=== PATIENT | female | born 1955 | race Caucasian/White ===

== ENCOUNTER 2019-10-24 16:33 | Emergency (ER) | payer BC, SELFPAY ==
[2019-10-24 16:42] VITALS: BP 167/84; PULSE 72; RESP 18; TEMP 36.8; O2SAT 99; BMI 25.0
--- NOTE | 2019-10-24 17:01 | ECG_ITS ---
Measurements Intervals [place] Rate: 59 P: 48 HI: 161 QRS: -5 QRSD: 85 T: 50 QT: 442 QTc: 439 SINUS BRADYCARDIA LOW QRS VOLTAGE IN PRECORDIAL LEADS [QRS DEFLECTION < 1.0 mV IN CHEST LEADS] POSSIBLE INFERIOR MYOCARDIAL INFARCTION , PROBABLY OLD [30 ms Q WAVE IN II/aVF] No previous ECG available for comparison Electronically Signed On 10-24-2019 21:06:40 GLASSINE MACHINE TENDER by Jenn Up M.D. [email or web address]
--- NOTE | 2019-10-24 17:01 | XR_ITS ---
WS: [id number] Portable AP upright chest, 10/24/2019 Clinical Data: cough/congestion Comparison: None. Findings: No nodules, masses or effusions are seen. The heart is normal. The pulmonary vascularity is not increased. No pneumonia or pneumothorax is seen. XR/XR chest 1V portable [id number] Impression: Negative chest.
[2019-10-24 17:32] LABS: Basophils % 0.4 %; Eosinophils # 0.6 10^3/uL (0.0-0.8); Eosinophils % 7.5 %; Hematocrit 45.1 % (37.0-47.0); Hemoglobin 14.3 g/dL (11.5-15.3); Lymphocytes % 12.3 %; Mean Corpuscular HGB Conc 31.7 g/dL (30.0-36.0); Mean Corpuscular Hemoglobin 29.2 pg (28.0-34.0); Mean Platelet Volume 11.2 fL (7.4-10.4); Monocytes # 0.4 10^3/uL (0.2-0.9); Monocytes % 4.8 %; Neutrophils # 5.9 10^3/uL (1.8-7.7); Neutrophils % 74.7 %; Nucleated Red Blood Cells % 0 %; Platelet Count 213 10^3/cmm (130-400); Red Cell Distribution Width 12.1 % (12.1-15.1); White Blood Count 7.9 10^3/uL (4.0-10.0)
--- NOTE | 2019-10-24 17:38 | W.ED.ABDPA2 ---
HPI - Abdominal Pain General: Chief Complaint: Abdominal Pain Stated Complaint: abd pain Time Seen by Provider: 10/24/19 17:38 Source: patient Mode of arrival: ambulatory Limitations: no limitations History of Present Illness: HPI narrative: Patient is a nice 63-year-old female who presents to ED today with complaints of epigastric pain that initially began a few days ago. Patient states her pain seems to be intermittent and seems to be worsened with eating. Patient has no history of GERD, acid reflux, gastric ulcers, pancreatitis, or gallbladder disease. She reports no previous episodes. She reports nausea but no vomiting. Bowel movements have been normal. She has not been running fever/chills. She denies chest pain, shortness of breath, difficulty breathing. MD elicited complaint: abdominal pain Pertinent past history: none Pain Consistency: intermittent Location: Epigastric Radiation: none Migration to: other (back) Exacerbating factors: eating Relieving factors: nothing Associated Symptoms: Reports no associated symptoms and nausea; Denies change in stool character, chills, diarrhea, dysuria, fever(s), hematochezia, melena, syncope and vomiting Review of Systems Const: Denies: fever, chills, body aches, fatigue or malaise ENMT: Denies: throat pain or painful swallowing Card: Denies: chest pain, palpitations, irregular heart rhythm, edema, swelling of feet/ankles, lightheadedness, syncope, pre-syncope, shortness of breath on exertion or shortness of breath when lying down Resp: Denies: shortness of breath, productive cough, pain on inspiration, coughing up blood or chest congestion GI: Reports: abdominal pain and nausea; Denies: vomiting, diarrhea, change in stool character, blood in stool, black tarry stool, white/light colored stool or fatty stool : Denies: flank pain, difficulty urinating, painful urination, urinary frequency or urinary urgency Skin/Breast: Denies: rash Neuro: Denies: headache PFSH ED PFSH: Social History Smoking and tobacco status: never smoked Physical Exam Const: COMMON NORMALS: no apparent distress, average body habitus, oriented x3, no limitations, healthy appearing, alert and well nourished Chest: COMMONS NORMALS: inspection of chest normal and palpation of chest normal Resp: COMMON NORMALS: normal respiratory effort and clear to auscultation bilaterally AUSCULTATION: clear to auscultation bilaterally Cardio: COMMON NORMALS: regular rate and regular rhythm RATE: regular rate RHYTHM: regular rhythm GI: COMMON NORMALS: normal to inspection, nondistended, normoactive bowel sounds, soft to palpation, no hepatosplenomegaly and no masses PALPATION: Yes soft, Yes tender (mild; epigastric ) and Yes no hepatosplenomegaly : COMMON NORMALS: Yes no CVA tenderness BLADDER/KIDNEY EXAM: Yes no CVA tenderness Back/Pelvis: COMMON NORMALS: no CVA tenderness, thoracic and lumbar spine normal to inspection and thoraco-lumbar ROM normal Neuro: COMMON NORMALS: oriented x3 SENSORIUM/ORIENTATION: Yes alert Skin: COMMON NORMALS: no rashes or lesions noted GENERAL SKIN EXAM: no rashes or lesions noted Course Vital Signs: Vital signs: Vital Signs Temperature 97.7 F 10/24/19 19:18 Pulse Rate 68 10/24/19 19:18 Respiratory Rate 18 10/24/19 19:18 Blood Pressure 156/88 10/24/19 19:18 Pulse Oximetry 98 10/24/19 19:18 MDM - Abdominal Pain MDM Narrative: Medical decision making narrative: Patient had relief after GI cocktail. Her labs here are non-concerning. She will be treated for a possible gastritis. Recommend she follow-up with PCP in 2 weeks for continued pain. Return to ED precautions given. Lab Data: Labs: Lab Results 10/24/19 10/24/19 10/24/19 Range/Units 17:20 17:20 17:20 WBC 7.9 (4.0-10.0) 10^3/ uL RBC 4.90 (4.1-5.3) 10^6/u L Hgb 14.3 (11.5-15.3) g/dL Hct 45.1 (37.0-47.0) % MCV 92.0 (81-99) fL MCH 29.2 (28.0-34.0) pg MCHC 31.7 (30.0-36.0) g/dL RDW 12.1 (12.1-15.1) % Plt Count 213 (130-400) 10^3/c mm MPV 11.2 H (7.4-10.4) fL Neut % (Auto) 74.7 % Lymph % (Auto) 12.3 % [place] % (Auto) 4.8 % Eos % (Auto) 7.5 % Baso % (Auto) 0.4 % Neut # (Auto) 5.9 (1.8-7.7) 10^3/u L Lymph # (Auto) 1.0 (0.8-4.8) 10^3/u L [place] # (Auto) 0.4 (0.2-0.9) 10^3/u L Eos # (Auto) 0.6 (0.0-0.8) 10^3/u L Baso # (Auto) 0.0 (0.0-0.1) 10^3/u L Nucleated RBC % (a uto) 0 % Nucleated RBCs # 0.0 /100WBC Sodium 141 (136-145) mmol/L Potassium 4.2 (3.5-5.1) mmol/L Chloride 103 (98-107) mmol/L Carbon Dioxide 24 (22-29) mmol/L Anion Gap 18.2 (5-19) BUN 11 (8-23) mg/dL Creatinine 0.6 (0.5-0.9) mg/dL GFR Calculation 101.6 (90-130) mL/min Glucose 120 H (65-115) mg/dL Calcium 10.5 (8.5-10.5) mg/dL Total Bilirubin 0.3 (0.15-1.2) mg/dL AST 24 (0-32) U/L ALT 23 (0-33) U/L Alkaline Phosphata se 97 (35-105) IU/L Troponin T Gen 5 n g/L 6 (0-10) ng/mL Total Protein 7.2 (6.6-8.7) g/dL Albumin 4.8 (3.5-5.2) g/dL Globulin 2.4 (1.3-4.6) g/dL Lipase 32 (13-60) U/L EKG Data ^: EKG 1: EKG interpretation date: 10/24/19 EKG interpretation time: 17:45 Interpretation: Sinus bradycardia Rate [address] elevation or depression noted Discharge Plan Discharge Patient Disposition: Home, Self-Care Clinical Impression: Gastritis Qualifiers: Gastritis type: superficial Chronicity: acute Gastritis bleeding: without bleeding Qualified Code(s): K29.00 - Acute gastritis without bleeding Condition: Stable Prescriptions: New ranitidine HCl 150 mg capsule 150 mg PO DAILY Qty: 14 RF: 0 omeprazole 20 mg capsule,delayed release(DR/EC) 20 mg PO DAILY 14 Days Qty: 14 RF: 0 Discharge Orders: Discharge Order (Routine); Ordered 10/24/19 Ordered By: Kenzie Worthy Referrals: Aj Santiago [Family Provider] - Charles Hoffman MD [Primary Care Provider] - Patient Instructions: Gastritis (ED), Diet for Ulcers and Gastritis (ED), Gastroesophageal Reflux Disease (ED) Activity Restrictions/Additional Instructions: Follow up with primary care in 2 weeks if pain persists. Discharge Date/Time: 10/24/19 19:19 Coding Level of Care Code ED Payroll Professional for Ayush Rush
[2019-10-24 17:45] LABS: Alanine Aminotransferase 23 U/L (0-33); Albumin Level 4.8 g/dL (3.5-5.2); Alkaline Phosphatase 97 IU/L (35-105); Anion Gap 18.2 (5-19); Aspartate Amino Transferase 24 U/L (0-32); Blood Urea Nitrogen 11 mg/dL (8-23); Calcium 10.5 mg/dL (8.5-10.5); Carbon Dioxide 24 mmol/L (22-29); Chloride 103 mmol/L (98-107); Globulin 2.4 g/dL (1.3-4.6); Glomerular Filtration Rate 101.6 mL/min (90-130); Glucose 120 mg/dL (65-115); Lipase 32 U/L (13-60); Potassium 4.2 mmol/L (3.5-5.1); Sodium 141 mmol/L (136-145); Total Bilirubin 0.3 mg/dL (0.15-1.2); Total Protein 7.2 g/dL (6.6-8.7)
[2019-10-24 17:48] LABS: Troponin T (5th) Once 6 ng/mL (0-10)
[2019-10-24] MEDS: lidocaine 2% viscous 15 ML, aluminum-mag hydrox-simethicon 30 ML, sucralfate oral liq 1 GM PO (18:29)
--- NOTE | 2019-10-24 18:48 | PC.NURSE ---
Patient reports epigastric pain worsening after eating for approx 1 week.
[2019-10-24 19:18] VITALS: BP 156/88; PULSE 68; RESP 18; TEMP 36.5; O2SAT 98
== END 2019-10-24 19:19 | disposition home or self-care (01) ==
PROVIDERS: Emergency Provider Physician Assistant; Family Provider Family Medicine; PCP Urology
DX: K29.70 Gastritis, unspecified, without bleeding (principal)
CPT/HCPCS: 36415; 71045; 80053; 83690; 84484; 85025; 93005; 99281; 99283

== ENCOUNTER 2019-11-17 09:07 | Outpatient (CLI) | payer BC, SELFPAY ==
--- NOTE | 2019-11-17 09:18 | US_ITS ---
WS: [id number] ABDOMINAL ULTRASOUND LIMITED REASON FOR VISIT: EPGASTRIC PAIN TECHNIQUE: Grayscale and Doppler ultrasound examination of the abdomen. FINDINGS: Pancreas: Within normal limits. Abdominal aorta and IVC: Within normal limits. Liver: Liver measures 16.4 cm in length. Normal hepatopedal circulation. Gallbladder: Gallbladder wall thickness measures 0.2 mm. Biliary sludge. Common bile duct negative. Right kidney: Right kidney measures 11.1 cm x 6.7 cm x 6.3 cm. Right kidney cortex measures 1.61 cm. No hydronephrosis are stones. US/US abdomen limited [id number] IMPRESSION: Biliary sludge.
== END 2019-11-17 09:08 | disposition home or self-care (01) ==
LOC: US 09:08
PROVIDERS: Family Provider Family Medicine; PCP Family Medicine; Visit Provider Family Medicine
DX: K83.8 Other specified diseases of biliary tract (principal); R14.0 Abdominal distension (gaseous); R10.13 Epigastric pain
CPT/HCPCS: 76705

== ENCOUNTER → 2021-08-02 15:30 | Outpatient (BNVA) | payer BC, SELFPAY | PROVIDERS: Family Provider Family Medicine; PCP Family Medicine; Referring Provider Surgery; Visit Provider Surgery | DX: Z20.822 Contact with and (suspected) exposure to COVID-19 (principal) | CPT/HCPCS: 87635 ==

== ENCOUNTER 2021-08-07 07:05 | Day surgery (SDC) | payer BC, SELFPAY ==
[2021-08-06 08:46] VITALS: BMI 24.0
--- NOTE | 2021-08-07 07:34 | ANES.PREANE2 ---
Pre-Anesthetic Assessment Pre-Anesthetic Assessment: Height/Weight: Height 1.63 m Weight 63.503 kg Preop Diagnosis: screen Proposed Procedure: Operation Date: 08/07/21 08:30 Proposed Procedures p Colonoscopy 10243 z12.11(Not Applicable) - Maicol Puckett MD Familial anesthetic complications: Nonee Was Beta Kimberly taken within 24 hours: N/A Was Clonidine taken within 24 hours: N/A Last intake: > 8 hrs Social: Social History: No alcohol and No tobacco Exam: Pre-Anes Outpt Exam: alert, oriented x 3, clear to auscultation bilaterally and regular rate & rhythm Airway: MP: 2 Dentition: Partials Anesthetic Plan: ASA status: 1 Risk of > 500 ml blood loss (7ml/kg in children): No PFSH Anesthesia PFSH: Social History Smoking and tobacco status: never smoked Data Anesthesia Cardiac Studies: No Data to Display
[2021-08-07 08:38] VITALS: BP 141/66; PULSE 53; RESP 16; TEMP 36.1; O2SAT 100
[2021-08-07] MEDS: sodium chloride 0.9% 1,000 ML 30 ML IV (08:40)
--- NOTE | 2021-08-07 08:51 | W.PM.OPSFHP ---
Same Day Surgery H&P Indication for Procedure/HPI DATE OF PROCEDURE: August 07, 2021 CHIEF COMPLAINT/INDICATIONFOR SURGICAL PROCEDURE: Screening colonoscopy PREOP DIAGNOSIS: Screening colonoscopy PLANNED PROCEDRUE: Operation Date: 08/07/21 08:30 Proposed Procedures p Colonoscopy 26701 z12.11(Not Applicable) - Maicol Puckett MD This is a pleasant 65 years old female patient, referred to my practice for screening colonoscopy. Patient had one before 10 years and was reported as normal per her description. Denies any bleeding per rectum or history of colon cancer. ROS All systems have been reviewed negative except as per the above or per problem list Medications/Allergies* Home Medications Medication Instructions Recorded Confirmed Type No Known Home Medications 08/06/21 08/07/21 History Allergies/Adverse Reactions Allergy/AdvReac Type Severity Reaction Status Date / Time No Known Allergies Allergy Verified 08/07/21 08:41 Current Medications: Generic Name Dose Route Start Last Admin Trade Name Freq PRN Reason Stop Dose Admin Sodium Chloride 1,000 mls @ 30 mls/hr 08/07/21 07:15 08/07/21 08:40 Sodium Chloride 0.9% IV 08/08/21 07:14 30 mls/hr .Q24H SHARON Administration Pertinent History/Comorbid Conditions* Social History Smoking and tobacco status: never smoked Pertinent Exam Findings alert, oriented x 3, clear to auscultation bilaterally, regular rate & rhythm and procedure specific exam findings (Abdominal examination nontender nondistended soft) Recommendations Surgery/Procedure today (Colonoscopy with possible biopsy) Other Plans: Plan of care; After thorough history and physical examination and reviewing the chart, plan to perform screening colonoscopy. I discussed with the patient in details the risks,benefits,alternatives and indications.The risk of aspiration, bleeding, soft tissue injury, perforation of the colon and other potential concomitant complications were explained to the patient in details,also the potential need for Laproscoy/Laparotomy to repair any related complications including but not limited to colectomy and or Closotomy.The patient understood this well and did agree to proceed. Rationale was carefully and clearly discussed with the patient.Appropriate informed consent have been reviewed and signed All questions have been answered and all concerns have been addressed to patient's satisfaction. Verbal and written Instructions were given to the patient for colonoscopy prep Coding Level of Care Code Acute Photonics Technician for Ayush Rush
[2021-08-07 10:17] VITALS: BP 110/57; PULSE 55; RESP 17; TEMP 36.3; O2SAT 100
[2021-08-07 10:32] VITALS: BP 127/65; PULSE 56; RESP 18; O2SAT 99
--- NOTE | 2021-08-07 13:38 | ANE.PACU2 ---
Inpatient post-anesthesia follow up: Airway intact: Yes Vital signs: Temperature 97.4 F Pulse Rate 56 Respiratory Rate 18 Blood Pressure 127/65 Pulse Oximetry 99 Oxygen Delivery Me thod Room Air Oxygen Flow Rate Fraction of Inspir ed Oxygen Hydration adequate: Yes Nausea and vomiting: No Pain level: 2 Mental status: Baseline
== END 2021-08-07 11:08 | disposition home or self-care (01) ==
PROVIDERS: PCP Family Medicine; Visit Provider Surgery
PROC: 0DJD8ZZ Inspection of Lower Intestinal Tract, Via Natural or Artificial Opening Endoscopic (ICD-10-PCS; CPT 45378; principal; 2021-08-07 08:30)
DX: Z12.11 Encounter for screening for malignant neoplasm of colon (principal); K63.5 Polyp of colon; K57.50 Diverticulosis of both small and large intestine without perforation or abscess without bleeding
CPT/HCPCS: 45380; 88305; 96360; 96361; J2704; J7030

== ENCOUNTER 2024-11-21 09:09 | Outpatient (CLI) | payer MEDICARE, SELFPAY ==
--- NOTE | 2024-11-21 09:20 | MM_ITS ---
WS: [id number] BILATERAL 3D TOMOSYNTHESIS DIGITAL SCREENING MAMMOGRAPHY WITH CAD CLINICAL INFORMATION: screening HISTORY: Screening mammogram. No current complaints. COMPARISON: 2020 TECHNIQUE: Bilateral CC and MLO views. FINDINGS: Stable bilateral saline implants Scattered fibroglandular densities bilaterally. No suspicious focal mass, asymmetry, calcifications, or architectural distortion. No evidence of malignancy. Incidental punctate calcifications LEFT breast. MM/MM scr tomosynthesis [id number] IMPRESSION: DENSITY: There are scattered areas of fibroglandular density. BI-RADS: 2 - Benign. FOLLOW UP: 1 Year Follow-up Recommend return to annual screening mammography.
== END 2024-11-21 09:10 | disposition home or self-care (01) ==
PROVIDERS: PCP Family Medicine; Visit Provider Family Medicine
DX: Z12.31 Encounter for screening mammogram for malignant neoplasm of breast (principal); R92.323 Mammographic fibroglandular density, bilateral breasts; R92.1 Mammographic calcification found on diagnostic imaging of breast
CPT/HCPCS: 77063; 77067